=== PATIENT | female | born 1980 | race African-American/Black ===

== ENCOUNTER 2020-09-09 20:34 | Emergency (ER) | payer BC ==
[2020-09-10 06:21] LABS: SARS-CoV-2 NAA Rapid Test Not Detected (NotDetected)
== END 2020-09-09 22:20 | disposition home or self-care (01) ==
LOC: ERS 20:34
DX: J06.9 Acute upper respiratory infection, unspecified (principal); Z20.822 Contact with and (suspected) exposure to COVID-19
CPT/HCPCS: 71045; U0002; U0003; U0005

== ENCOUNTER 2023-10-07 08:47 | Emergency (ER) | payer SELFPAY ==
[2023-10-07] MEDS ORDERED: Ketorolac Tromethamine 30 MG (1 mL) VIAL ONE (10:38)
== END 2023-10-07 12:00 | disposition home or self-care (01) ==
LOC: ERS 08:47
DX: M25.562 Pain in left knee (principal); F17.290 Nicotine dependence, other tobacco product, uncomplicated
CPT/HCPCS: 96372; J1885